=== PATIENT | male | born 1990 | race Caucasian/White ===

== ENCOUNTER 2023-06-18 13:39 | Observation (INO) | payer BC, OTHER, SELFPAY ==
[2023-06-18 13:47] VITALS: BP 133/68; PULSE 73; RESP 16; TEMP 37; O2SAT 98; BMI 24.1
--- NOTE | 2023-06-18 13:59 | ED_ITS ---
HPI - Abdominal Pain <Vanessa Oh PA-C - Last Filed: 06/18/23 15:43> General Chief Complaint: Abdominal Pain Stated Complaint: sent from [facility] Appendicitis Time Seen by Provider: 06/18/23 13:45 Source: patient Mode of arrival: Ambulatory History of Present Illness HPI narrative: 32-year-old male with no reported past medical history presents to the ED with 1 day of right lower quadrant pain. Patient endorses nausea, chills, subjective fevers. Patient denies vomiting, chest pain, shortness of breath, diarrhea, constipation, hematochezia, melena, lightheadedness, dizziness, syncope. Patient's last bowel movement was yesterday, which was normal. It was seen in the walk-in clinic earlier today, sent to the ED to rule out appendicitis. Patient endorses a 4/10 pain currently in the ED. Patient was given a dose of Zofran in the walk-in clinic with the nausea. Patient's nausea is well controlled at the moment. No prior abdominal surgeries. Related Data Home Medications Medication Instructions Recorded Confirmed acetaminophen 500 mg capsule 500 mg PO Q24H PRN Pain (Scale 06/18/23 06/18/23 Score 4-6) ibuprofen 400 mg tablet 400 mg PO Q6H PRN Pain (Scale 06/18/23 06/18/23 Score 1-3) Previous Rx's Medication Instructions Recorded hydrocodone 5 mg-acetaminophen 325 1 tab PO Q6H PRN Mild or moderate 06/19/23 mg tablet pain #15 tabs Allergies Allergy/AdvReac Type Severity Reaction Status Date / Time broccoli Allergy Nausea Verified 06/19/23 08:57 bee venom protein (honey bee) AdvReac Severe Anaphylaxis Verified 06/19/23 08:57 Review of Systems <Vanessa Oh PA-C - Last Filed: 06/18/23 15:43> Review of Systems ROS Unobtainable: All systems reviewed & are unremarkable except as noted in HPI and below Constitutional Constitutional: Reports chills, Denies fatigue, Reports fever(s), Denies frequent falls, Denies lethargy and Denies weakness Eyes Eyes: Denies change in vision, Denies eye discharge, Denies irritation and Denies loss of vision ENT Ears, Nose, Mouth, and Throat: Denies change in voice, Denies dizziness, Denies neck pain, Denies sore throat and Denies throat swelling Cardiovascular Cardiovascular: Denies chest pain, Denies irregular heart rhythm, Denies lightheadedness, Denies palpitations, Denies dyspnea, Denies dyspnea on exertion and Denies orthopnea Respiratory Respiratory: Denies cough, Denies dyspnea, Denies dyspnea on exertion and Denies wheezing Gastrointestinal Gastrointestinal: Reports abdominal pain, Denies change in bowel habits, Denies diarrhea, Reports nausea and Denies vomiting Genitourinary Genitourinary: Denies hematuria, Denies flank pain, Denies urinary incontinence and Denies urinary urgency Musculoskeletal Musculoskeletal: Denies back pain, Denies muscle weakness, Denies neck pain, Denies numbness and Denies tingling Integumentary/Breasts Skin/Breast: Denies pruritus, Denies erythema, Denies rash and Denies wounds Neurologic Neurologic: Denies behavioral changes, Denies confusion, Denies dizziness, Denies frequent falls, Denies loss of vision, Denies numbness, Denies tingling and Denies weakness Psychiatric Psychiatric: Denies anxiety, Denies behavioral changes, Denies confusion, Denies depression, Denies homicidal ideation and Denies suicidal ideation Endocrine Endocrine: Denies fatigue, Denies flushing and Denies palpitations Hematologic/Lymphatic Hematologic/Lymphatic: Denies easy bruising Allergic/Immunologic Allergic/Immunologic: Denies urticaria, Denies throat swelling and Denies wheezing Patient History <Vanessa Oh PA-C - Last Filed: 06/18/23 15:43> Social History household members: none Smoking Status: Former smoker alcohol intake: current Smoking Status: Former smoker alcohol intake frequency: 0-2 drinks per day Substance Use Type: does not use Exam <Vanessa Oh PA-C - Last Filed: 06/18/23 15:43> Narrative Exam Narrative: Const General:?cooperative, healthy appearing and comfortable [facility] Head:?normal to inspection Ears:?hearing grossly normal bilaterally Nose:?external nose normal Face and sinus:?normal facial exam and sinuses nontender Mouth:?oral mucosae normal Throat:?posterior oropharynx normal Eyes General:?appearance normal, both eyes and all related structures Neck Neck:?normal visual inspection and no lymphadenopathy noted Resp Effort & Inspection:?normal respiratory effort Auscultation:?clear to auscultation bilaterally Cardio Rate:?regular rate Rhythm:?regular rhythm GI Abdomen is soft, nondistended. Abdomen is exquisitely tender to palpation in the right lower quadrant. Neuro General:?patient alert, patient awake and patient oriented x3 Initial Vital Signs Initial Vital Signs: Vital Signs Temperature 98.6 F 06/18/23 13:47 Pulse Rate 73 06/18/23 13:47 Respiratory Rate 16 06/18/23 13:47 Blood Pressure 133/68 06/18/23 13:47 Pulse Oximetry 98 06/18/23 13:47 Oxygen Delivery Method Room Air 06/18/23 13:47 <Lizzy Phipps DO - Last Filed: 06/21/23 07:52> Initial Vital Signs Initial Vital Signs: Vital Signs Temperature 98.6 F 06/18/23 13:47 Pulse Rate 73 06/18/23 13:47 Respiratory Rate 16 06/18/23 13:47 Blood Pressure 133/68 06/18/23 13:47 Pulse Oximetry 98 06/18/23 13:47 Oxygen Delivery Method Room Air 06/18/23 13:47 Course <Vanessa Oh PA-C - Last Filed: 06/18/23 15:43> Orders Ordered: Discontinued Medications Acetaminophen (Acetaminophen 325 Mg Tablet) 650 mg PO Q6H [facility] Last Admin: 06/19/23 08:07 Dose: Not Given Documented By: Admin: 06/19/23 05:01 Dose: 650 mg Documented By: Admin: 06/19/23 04:00 Dose: Not Given Documented By: Admin: 06/18/23 21:13 Dose: Not Given Documented By: Admin: 06/18/23 17:52 Dose: 650 mg Documented By: LDV Hydrocodone Bitart/Acetaminophen (Hydrocodone/Acet 5/325 Tablet) 1 tab PO PACUNOW PRN PRN Reason: Mild or moderate pain Benzocaine (Benzocaine/Menthol 1 Hien Pkt) 1 each PO PRN PRN PRN Reason: Sore Throat Last Admin: 06/19/23 11:01 Dose: 1 each Documented By: AK Bupivacaine HCl 20 ml/ (Epinephrine HCl 0.1 mg) 0 ml INJ NOW ONE Stop: 06/19/23 10:16 Last Admin: 06/19/23 10:16 Dose: 6 ml Documented By: PF Fentanyl (Fentanyl 100 Mcg/2 Ml Inj) 0 mcg IV Q5M PRN PRN Reason: Pain, Moderate (4-6) Gabapentin (Gabapentin 300 Mg Capsule) 300 mg PO TID [facility] Last Admin: 06/19/23 08:08 Dose: Not Given Documented By: Admin: 06/18/23 21:12 Dose: Not Given Documented By: Admin: 06/18/23 17:53 Dose: 300 mg Documented By: LDV Hydromorphone HCl (Hydromorphone 0.5 Mg Inj) 0.5 mg IV Q2H PRN PRN Reason: Pain, Severe (7-10) Last Admin: 06/19/23 06:17 Dose: 0.5 mg Documented By: AM Hydromorphone HCl (Hydromorphone 2 Mg Inj) 0 mg IV Q5M PRN PRN Reason: Pain, Moderate (4-6) Hydroxyzine Pamoate (Hydroxyzine Pamoate 25 Mg Capsule) 50 mg PO NOW PRN PRN Reason: Moderate Pain Piperacillin Sod/Tazobactam (Sod 4.5 gm/ Sodium Chloride) 100 mls @ 200 mls/hr IV NOW ONE Stop: 06/18/23 14:54 Last Admin: 06/18/23 16:35 Dose: 200 mls/hr Documented By: LDV Sodium Chloride (Normal Saline 0.9%) 1,000 mls @ 125 mls/hr IV CONT [facility] Last Admin: 06/18/23 16:49 Dose: Not Given Documented By: LDV Dextrose/Sodium Chloride (Dextrose 5%-0.9% Ns) 1,000 mls @ 100 mls/hr IV CONT [facility] Last Admin: 06/19/23 04:51 Dose: 100 mls/hr Documented By: Infusion: 06/19/23 02:40 Dose: 100 mls/hr Documented By: Admin: 06/18/23 16:40 Dose: 100 mls/hr Documented By: LDV Piperacillin Sod/Tazobactam (Sod 3.375 gm/ Sodium Chloride) 100 mls @ 25 mls/hr IV Q8H [facility] Last Admin: 06/18/23 18:15 Dose: Not Given Documented By: LDV Piperacillin Sod/Tazobactam (Sod 3.375 gm/ Sodium Chloride) 100 mls @ 25 mls/hr IV Q8H [facility] Last Admin: 06/19/23 04:50 Dose: 25 mls/hr Documented By: Infusion: 06/19/23 01:00 Dose: 0 mls/hr Documented By: Admin: 06/18/23 20:54 Dose: 25 mls/hr Documented By: REGIS Lactated Ringer's (Lactated Ringers) 1,000 mls @ 42 mls/hr IV NOW ONE Stop: 06/20/23 08:49 Last Infusion: 06/19/23 11:41 Dose: 0 mls/hr Documented By: Admin: 06/19/23 09:01 Dose: 42 mls/hr Documented By: VALENTINO Ibuprofen (Ibuprofen 600 Mg Tablet) 600 mg PO Q6H [facility] Last Admin: 06/19/23 08:08 Dose: Not Given Documented By: Admin: 06/19/23 05:00 Dose: 600 mg Documented By: Admin: 06/19/23 04:00 Dose: Not Given Documented By: Admin: 06/18/23 21:13 Dose: Not Given Documented By: Admin: 06/18/23 17:52 Dose: 600 mg Documented By: LDMaximus Ketorolac Tromethamine (Ketorolac 30 Mg/Ml Vial) 15 mg IV NOW ONE Stop: 06/18/23 14:56 Last Admin: 06/18/23 16:29 Dose: 15 mg Documented By: WEI Lorazepam (Lorazepam 2 Mg/Ml Inj) 0.5 mg IV NOW PRN PRN Reason: Anxiety Last Admin: 06/19/23 11:14 Dose: 0.25 mg Documented By: JULIA Meperidine HCl (Meperidine 50 Mg/Ml Inj) 12.5 mg IV PACUNOW PRN PRN Reason: Mild pain or shivering Metoclopramide HCl (Metoclopramide 10 Mg/2 Ml Inj) 10 mg IV NOW PRN PRN Reason: Nausea And Vomiting Naloxone HCl (Naloxone 0.4 Mg/Ml Vial) 0.2 mg IV Q2MIN PRN PRN Reason: Opiate Reversal Ondansetron HCl (Ondansetron 4 Mg/2 Ml Inj) 4 mg IV Q8HR PRN PRN Reason: Nausea And Vomiting Last Admin: 06/19/23 06:17 Dose: 4 mg Documented By: AM Ondansetron HCl (Ondansetron 4 Mg/2 Ml Inj) 4 mg IV NOW ONE Stop: 06/18/23 15:42 Last Admin: 06/18/23 16:29 Dose: 4 mg Documented By: WEI Ondansetron HCl (Ondansetron 4 Mg/2 Ml Inj) 4 mg IV NOW PRN PRN Reason: Nausea And Vomiting Oxycodone HCl (Oxycodone Ir 5 Mg Tablet) 5 mg PO Q3H PRN PRN Reason: Pain, Moderate (4-6) Last Admin: 06/19/23 05:01 Dose: 5 mg Documented By: Admin: 06/19/23 01:02 Dose: 5 mg Documented By: AM Oxycodone HCl (Oxycodone Ir 5 Mg Tablet) 5 mg PO PACUNOW PRN PRN Reason: Mild or moderate pain Last Admin: 06/19/23 11:09 Dose: 5 mg Documented By: JULIA Oxycodone/Acetaminophen (Oxycodone/Acetaminophen 5/325 Tablet) 1 tab PO PACUNOW PRN PRN Reason: Mild or Moderate Pain Scopolamine (Scopolamine 1 Patch) 1 patch TOP NOW ONE Stop: 06/18/23 15:33 Last Admin: 06/18/23 20:52 Dose: 1 patch Documented By: REGIS Vital Signs Vital signs: Vital Signs - 8 hr 06/18/23 13:47 Temperature 98.6 F Pulse Rate 73 Respiratory Rate 16 Blood Pressure 133/68 Pulse Oximetry 98 Oxygen Delivery Method Room Air <Lizzy Phipps DO - Last Filed: 06/21/23 07:52> Orders Ordered: Discontinued Medications Acetaminophen (Acetaminophen 325 Mg Tablet) 650 mg PO Q6H [facility] Last Admin: 06/19/23 08:07 Dose: Not Given Documented By: Admin: 06/19/23 05:01 Dose: 650 mg Documented By: Admin: 06/19/23 04:00 Dose: Not Given Documented By: Admin: 06/18/23 21:13 Dose: Not Given Documented By: Admin: 06/18/23 17:52 Dose: 650 mg Documented By: LDV Hydrocodone Bitart/Acetaminophen (Hydrocodone/Acet 5/325 Tablet) 1 tab PO PACUNOW PRN PRN Reason: Mild or moderate pain Benzocaine (Benzocaine/Menthol 1 Hien Pkt) 1 each PO PRN PRN PRN Reason: Sore Throat Last Admin: 06/19/23 11:01 Dose: 1 each Documented By: AK Bupivacaine HCl 20 ml/ (Epinephrine HCl 0.1 mg) 0 ml INJ NOW ONE Stop: 06/19/23 10:16 Last Admin: 06/19/23 10:16 Dose: 6 ml Documented By: PF Fentanyl (Fentanyl 100 Mcg/2 Ml Inj) 0 mcg IV Q5M PRN PRN Reason: Pain, Moderate (4-6) Gabapentin (Gabapentin 300 Mg Capsule) 300 mg PO TID [facility] Last Admin: 06/19/23 08:08 Dose: Not Given Documented By: Admin: 06/18/23 21:12 Dose: Not Given Documented By: Admin: 06/18/23 17:53 Dose: 300 mg Documented By: LDV Hydromorphone HCl (Hydromorphone 0.5 Mg Inj) 0.5 mg IV Q2H PRN PRN Reason: Pain, Severe (7-10) Last Admin: 06/19/23 06:17 Dose: 0.5 mg Documented By: AM Hydromorphone HCl (Hydromorphone 2 Mg Inj) 0 mg IV Q5M PRN PRN Reason: Pain, Moderate (4-6) Hydroxyzine Pamoate (Hydroxyzine Pamoate 25 Mg Capsule) 50 mg PO NOW PRN PRN Reason: Moderate Pain Piperacillin Sod/Tazobactam (Sod 4.5 gm/ Sodium Chloride) 100 mls @ 200 mls/hr IV NOW ONE Stop: 06/18/23 14:54 Last Admin: 06/18/23 16:35 Dose: 200 mls/hr Documented By: LDV Sodium Chloride (Normal Saline 0.9%) 1,000 mls @ 125 mls/hr IV CONT [facility] Last Admin: 06/18/23 16:49 Dose: Not Given Documented By: LDV Dextrose/Sodium Chloride (Dextrose 5%-0.9% Ns) 1,000 mls @ 100 mls/hr IV CONT [facility] Last Admin: 06/19/23 04:51 Dose: 100 mls/hr Documented By: Infusion: 06/19/23 02:40 Dose: 100 mls/hr Documented By: Admin: 06/18/23 16:40 Dose: 100 mls/hr Documented By: LDV Piperacillin Sod/Tazobactam (Sod 3.375 gm/ Sodium Chloride) 100 mls @ 25 mls/hr IV Q8H [facility] Last Admin: 06/18/23 18:15 Dose: Not Given Documented By: LDV Piperacillin Sod/Tazobactam (Sod 3.375 gm/ Sodium Chloride) 100 mls @ 25 mls/hr IV Q8H [facility] Last Admin: 06/19/23 04:50 Dose: 25 mls/hr Documented By: Infusion: 06/19/23 01:00 Dose: 0 mls/hr Documented By: Admin: 06/18/23 20:54 Dose: 25 mls/hr Documented By: REGIS Lactated Ringer's (Lactated Ringers) 1,000 mls @ 42 mls/hr IV NOW ONE Stop: 06/20/23 08:49 Last Infusion: 06/19/23 11:41 Dose: 0 mls/hr Documented By: Admin: 06/19/23 09:01 Dose: 42 mls/hr Documented By: VALENTINO Ibuprofen (Ibuprofen 600 Mg Tablet) 600 mg PO Q6H [facility] Last Admin: 06/19/23 08:08 Dose: Not Given Documented By: Admin: 06/19/23 05:00 Dose: 600 mg Documented By: Admin: 06/19/23 04:00 Dose: Not Given Documented By: Admin: 06/18/23 21:13 Dose: Not Given Documented By: Admin: 06/18/23 17:52 Dose: 600 mg Documented By: ELLY Ketorolac Tromethamine (Ketorolac 30 Mg/Ml Vial) 15 mg IV NOW ONE Stop: 06/18/23 14:56 Last Admin: 06/18/23 16:29 Dose: 15 mg Documented By: WEI Lorazepam (Lorazepam 2 Mg/Ml Inj) 0.5 mg IV NOW PRN PRN Reason: Anxiety Last Admin: 06/19/23 11:14 Dose: 0.25 mg Documented By: JULIA Meperidine HCl (Meperidine 50 Mg/Ml Inj) 12.5 mg IV PACUNOW PRN PRN Reason: Mild pain or shivering Metoclopramide HCl (Metoclopramide 10 Mg/2 Ml Inj) 10 mg IV NOW PRN PRN Reason: Nausea And Vomiting Naloxone HCl (Naloxone 0.4 Mg/Ml Vial) 0.2 mg IV Q2MIN PRN PRN Reason: Opiate Reversal Ondansetron HCl (Ondansetron 4 Mg/2 Ml Inj) 4 mg IV Q8HR PRN PRN Reason: Nausea And Vomiting Last Admin: 06/19/23 06:17 Dose: 4 mg Documented By: AM Ondansetron HCl (Ondansetron 4 Mg/2 Ml Inj) 4 mg IV NOW ONE Stop: 06/18/23 15:42 Last Admin: 06/18/23 16:29 Dose: 4 mg Documented By: WEI Ondansetron HCl (Ondansetron 4 Mg/2 Ml Inj) 4 mg IV NOW PRN PRN Reason: Nausea And Vomiting Oxycodone HCl (Oxycodone Ir 5 Mg Tablet) 5 mg PO Q3H PRN PRN Reason: Pain, Moderate (4-6) Last Admin: 06/19/23 05:01 Dose: 5 mg Documented By: Admin: 06/19/23 01:02 Dose: 5 mg Documented By: AM Oxycodone HCl (Oxycodone Ir 5 Mg Tablet) 5 mg PO PACUNOW PRN PRN Reason: Mild or moderate pain Last Admin: 06/19/23 11:09 Dose: 5 mg Documented By: JULIA Oxycodone/Acetaminophen (Oxycodone/Acetaminophen 5/325 Tablet) 1 tab PO PACUNOW PRN PRN Reason: Mild or Moderate Pain Scopolamine (Scopolamine 1 Patch) 1 patch TOP NOW ONE Stop: 06/18/23 15:33 Last Admin: 06/18/23 20:52 Dose: 1 patch Documented By: REGIS Vital Signs Vital signs: Vital Signs - 8 hr 06/18/23 13:47 Temperature 98.6 F Pulse Rate 73 Respiratory Rate 16 Blood Pressure 133/68 Pulse Oximetry 98 Oxygen Delivery Method Room Air MDM - Abdominal Pain <Vanessa Oh PA-C - Last Filed: 06/18/23 15:43> Lab Data 06/19/23 05:00 06/18/23 14:17 Labs: Lab Results 06/18/23 06/18/23 06/18/23 Range/Units 14:17 14:17 14:17 WBC 16.8 H (4.5-11.0) X10^3/uL RBC 4.65 (4.5-5.9) X10^6/uL Hgb 14.4 (13.5-17.5) g/dL Hct 41.5 (41-53) % MCV 89.2 (80-100) fL MCH 31.0 (26-34) PG MCHC 34.8 (30-36) % RDW 13.0 (11.6-14.8) % Plt Count 220 (150-400) X10^3/uL Neut % (Auto) 83.4 H (50-75) % Lymph % (Auto) 7.2 L (25-40) % Ward % (Auto) 8.8 (3-14) % Eos % (Auto) 0.4 L (2-4) % Baso % (Auto) 0.2 (0-2) % Neut # (Auto) 89200 H (8780-7051) /uL Lymph # (Auto) 1200 (7951-9470) /uL Ward # (Auto) 1500 H (0-900) /uL Eos # (Auto) 100 (0-450) /uL Baso # (Auto) 0 (0-100) /uL PT 13.3 H (10.1-12.7) SECONDS INR 1.2 (0.9-1.3) APTT 31 (26-36) SECONDS Sodium 134 L (137-145) mmol/L Potassium 3.9 (3.4-5.1) mmol/L Chloride 99 (98-107) mmol/L Carbon Dioxide 27 (22-32) mmol/L BUN 11 (9-20) mg/dL Creatinine 0.91 (0.66-1.25) mg/dL Estimated GFR > 60 (>60) mL/min BUN/Creatinine Ratio 12.1 (6-22) Glucose 109 H (70-100) mg/dL Calcium 9.1 (8.4-10.2) mg/dL Total Bilirubin 0.7 (0.2-1.3) mg/dL AST 25 (17-59) IU/L ALT 25 (<50) IU/L Alkaline Phosphatase 74 (38-126) U/L Total Protein 7.6 (6.3-8.2) g/dL Albumin 4.6 (3.5-5.0) g/dL Globulin 3.0 (1.7-4.1) g/dL Albumin/Globulin Ratio 1.5 (1.0-2.8) Lipase 41 (23-300) U/L MDM Narrative Medical decision making narrative: 32-year-old male with no reported past medical history presents to the ED with 1 day of right lower quadrant pain. Concern for appendicitis versus nephrolithiasis versus UTI versus pyelonephritis versus other intra-abdominal pathology versus other. Will obtain labs, lipase, UA, CT abdomen pelvis. Will give ketorolac for pain. Will reassess. White count elevated at 16.8. All other labs within normal limits. CT abdomen pelvis shows acute appendicitis without abscess or perforation. The appendix is abnormally dilated to 13 mm diameter, there is wall thickening and periappendiceal inflammatory stranding. Dr. Powers from surgery was consulted she recommends starting antibiotics, admitting to surgery. Patient will be observed overnight for improvement with antibiotics, evaluated for surgery tomorrow. Findings and disposition discussed with patient. Patient verbalized understanding. Antibiotics and maintenance fluids started. Patient she will be strict NPO. Medical records reviewed: Yes <Lizzy Phipps DO - Last Filed: 06/21/23 07:52> Lab Data Labs: Lab Results 06/18/23 06/18/23 06/18/23 Range/Units 14:17 14:17 14:17 WBC 16.8 H (4.5-11.0) X10^3/uL RBC 4.65 (4.5-5.9) X10^6/uL Hgb 14.4 (13.5-17.5) g/dL Hct 41.5 (41-53) % MCV 89.2 (80-100) fL MCH 31.0 (26-34) PG MCHC 34.8 (30-36) % RDW 13.0 (11.6-14.8) % Plt Count 220 (150-400) X10^3/uL Neut % (Auto) 83.4 H (50-75) % Lymph % (Auto) 7.2 L (25-40) % Ward % (Auto) 8.8 (3-14) % Eos % (Auto) 0.4 L (2-4) % Baso % (Auto) 0.2 (0-2) % Neut # (Auto) 91495 H (3418-6964) /uL Lymph # (Auto) 1200 (3372-8809) /uL Ward # (Auto) 1500 H (0-900) /uL Eos # (Auto) 100 (0-450) /uL Baso # (Auto) 0 (0-100) /uL PT 13.3 H (10.1-12.7) SECONDS INR 1.2 (0.9-1.3) APTT 31 (26-36) SECONDS Sodium 134 L (137-145) mmol/L Potassium 3.9 (3.4-5.1) mmol/L Chloride 99 (98-107) mmol/L Carbon Dioxide 27 (22-32) mmol/L BUN 11 (9-20) mg/dL Creatinine 0.91 (0.66-1.25) mg/dL Estimated GFR > 60 (>60) mL/min BUN/Creatinine Ratio 12.1 (6-22) Glucose 109 H (70-100) mg/dL Calcium 9.1 (8.4-10.2) mg/dL Total Bilirubin 0.7 (0.2-1.3) mg/dL AST 25 (17-59) IU/L ALT 25 (<50) IU/L Alkaline Phosphatase 74 (38-126) U/L Total Protein 7.6 (6.3-8.2) g/dL Albumin 4.6 (3.5-5.0) g/dL Globulin 3.0 (1.7-4.1) g/dL Albumin/Globulin Ratio 1.5 (1.0-2.8) Lipase 41 (23-300) U/L Discharge Plan Departure Patient Disposition: Admitted to Surgery Clinical Impression: Acute appendicitis Admit Date/Time: 06/18/23 14:57 Admit Provider: La Powers <Lizzy Phipps DO - Last Filed: 06/21/23 07:52> Cosign ED Attending Naelature Attestation: I was immediately available in the department for consultation. Documentation has been reviewed.
--- NOTE | 2023-06-18 14:04 | DI.CT.S_ITS ---
PROCEDURE: CT ABDOMEN PELVIS W CON INDICATIONS: RLQ pain TECHNIQUE: After the administration of intravenous contrast, axial sections acquired from the lung bases to the pubic symphysis. Coronal and sagittal reformats were performed. For radiation dose reduction, the following was used: automated exposure control, adjustment of mA and/or kV according to patient size. COMPARISON: None. FINDINGS: Image quality: Excellent. Lung bases: Unremarkable. Heart: No significant findings. ABDOMEN: Liver: Unremarkable. Gallbladder: Unremarkable. Biliary ducts: Unremarkable. Pancreas: Unremarkable. Spleen: Unremarkable. Adrenal Glands: Unremarkable. Kidneys and Ureters: Unremarkable. Stomach and Bowel: Stomach, small bowel loops, and colon are unremarkable. The appendix is abnormally dilated measuring up to 13 mm in diameter. There is wall thickening and moderate periappendiceal inflammatory stranding. No evidence for perforation or abscess formation. Peritoneum: No abnormal intraperitoneal fluid. No free air. Ventral Wall: No hernias. Abdominal Nodes: No retroperitoneal or mesenteric adenopathy by size criteria. Vessels: Aorta and inferior vena cava are normal in size. PELVIS: Pelvic Organs: Unremarkable. Bladder: Unremarkable. Pelvic Nodes: No enlarged lymph nodes. Miscellaneous: No hernias are seen. Bones: Unremarkable. IMPRESSION: 1. Acute appendicitis. No evidence for perforation or abscess formation. Dictated by: Paul James M.D. on 06/18/2023 at 13:31 Approved by: Paul James M.D. on 06/18/2023 at 13:34
[2023-06-18 14:26] LABS: Add Manual Diff / Slide Review NO; Basophils Absolute Auto 0 /uL (0-100); Basophils Percent Auto 0.2 % (0-2); Eosinophils Absolute Auto 100 /uL (0-450); Eosinophils Percent Auto 0.4 % (2-4); Hematocrit 41.5 % (41-53); Hemoglobin 14.4 g/dL (13.5-17.5); Lymphocytes Absolute Auto 1200 /uL (1100-4500); Lymphocytes Percent Auto 7.2 % (25-40); Mean Corpuscular HGB Conc 34.8 % (30-36); Mean Corpuscular Volume 89.2 fL (80-100); Monocytes Absolute Auto 1500 /uL (0-900); Monocytes Percent Auto 8.8 % (3-14); Neutrophils Absolute Auto 14000 /uL (1500-7000); Neutrophils Percent Auto 83.4 % (50-75); Platelet Count 220 X10^3/uL (150-400); Red Blood Cell Count 4.65 X10^6/uL (4.5-5.9); White Blood Cell Count 16.8 X10^3/uL (4.5-11.0)
[2023-06-18 14:41] LABS: INR 1.2 (0.9-1.3); Prothrombin Time 13.3 SECONDS (10.1-12.7)
[2023-06-18 14:43] LABS: PTT Partial Thromboplastin Tim 31 SECONDS (26-36)
[2023-06-18 14:45] LABS: Alanine Aminotransferase 25 IU/L (<50); Albumin 4.6 g/dL (3.5-5.0); Albumin Globulin Ratio 1.5 (1.0-2.8); Alkaline Phosphatase 74 U/L (38-126); Aspartate Aminotransferase 25 IU/L (17-59); BUN Creatinine Ratio 12.1 (6-22); Bilirubin Total 0.7 mg/dL (0.2-1.3); Blood Urea Nitrogen 11 mg/dL (9-20); Calcium 9.1 mg/dL (8.4-10.2); Carbon Dioxide 27 mmol/L (22-32); Chloride 99 mmol/L (98-107); Estimated Glomerular Filt Rate > 60 mL/min (>60); Glucose 109 mg/dL (70-100); HEMOLYSIS < 15 (0-50); Lipase 41 U/L (23-300); Potassium 3.9 mmol/L (3.4-5.1); Sodium 134 mmol/L (137-145); Total Protein 7.6 g/dL (6.3-8.2)
[2023-06-18] MEDS: KETOROLAC 30 MG/ML VIAL 15 MG IV (16:29)
[2023-06-18] MEDS: ONDANSETRON 4 MG/2 ML INJ IV (16:29)
[2023-06-18] MEDS: PIPERACILLIN/TAZO 4.5 GM in SODIUM CHLORIDE 0.9% 100 ML IV (16:35)
[2023-06-18] MEDS: DEXTROSE 5%-0.9% NS 1,000 ML 100 ML IV (16:40)
[2023-06-18 16:43] VITALS: BP 121/68; PULSE 73; RESP 15; TEMP 36.6; O2SAT 100
[2023-06-18] MEDS: ACETAMINOPHEN 325 MG TABLET 650 MG PO (17:52)
[2023-06-18] MEDS: IBUPROFEN 600 MG TABLET PO (17:52)
[2023-06-18] MEDS: GABAPENTIN 300 MG CAPSULE PO (17:53)
[2023-06-18 17:57] VITALS: BMI 25.5
[2023-06-18 20:00] VITALS: BP 120/72; PULSE 68; RESP 17; TEMP 35.8; O2SAT 99
[2023-06-18] MEDS: SCOPOLAMINE 1 PATCH TOP (20:52)
[2023-06-18] MEDS: PIPERACILLIN/TAZO 3.375 GM in SODIUM CHLORIDE 0.9% 100 ML IV (20:54)
[2023-06-19] VITALS (11 sets, daily range): BP systolic 92–125; BP diastolic 59–83; PULSE 52–86; RESP 9–19; TEMP 35.8–36.4; O2SAT 92–99; BMI 25.5
--- NOTE | 2023-06-19 | PATH_ITS ---
[facility] Accession Number: [id number] No. of containers..01 Tissue . 01 Material submitted: . appendix - APPENDIX . 01 Diagnosis: Vermiform Appendix, Appendectomy: Acute transmural periappendicitis and periappendicitis. Negative for neoplasia. MRV 06/25/2023 1405 Local . 01 Electronically signed: . La Hoyt MD, Pathologist NPI- [id number] . 01 Gross description: . The specimen is received in formalin labeled with the patient's name, , and appendix, and consists of a chino vermiform appendix measuring 4.3 cm in length by 0.9 cm in diameter with chino serosa and adherent material consistent with exudate. The margin is inked blue, and sectioning reveals a patent lumen averaging 0.2 cm in diameter with no fecaliths identified. The bhatt are gary to chino, average 0.3 cm thick with no perforations or lesions identified. [employer] sections to include the margin, one-half of the bisected distal tip, and cross-section are submitted in cassette A1. ([id number]) /[facility] 06/20/2023 1012 Local . 01 Pathologist provided ICD-10: K35.80 . 01 CPT . 918376 Specimen Comment: A courtesy copy of this report has been sent to [phone] Performed at: 01 [facility] [address] [place] [address], [place], [place] [id number] MD Bill Heller MD Phone: [phone]
[2023-06-19] MEDS: OXYCODONE IR 5 MG TABLET PO ×3 (01:02→11:09)
[2023-06-19] MEDS: PIPERACILLIN/TAZO 3.375 GM in SODIUM CHLORIDE 0.9% 100 ML IV (04:50)
[2023-06-19] MEDS: DEXTROSE 5%-0.9% NS 1,000 ML 100 ML IV (04:51)
[2023-06-19] MEDS: IBUPROFEN 600 MG TABLET PO (05:00)
[2023-06-19] MEDS: ACETAMINOPHEN 325 MG TABLET 650 MG PO (05:01)
[2023-06-19 05:22] LABS: Add Manual Diff / Slide Review NO; Basophils Absolute Auto 0 /uL (0-100); Basophils Percent Auto 0.2 % (0-2); Eosinophils Absolute Auto 300 /uL (0-450); Eosinophils Percent Auto 2.7 % (2-4); Hematocrit 39.6 % (41-53); Hemoglobin 13.4 g/dL (13.5-17.5); Lymphocytes Absolute Auto 1600 /uL (1100-4500); Lymphocytes Percent Auto 16.8 % (25-40); Mean Corpuscular HGB Conc 33.9 % (30-36); Mean Corpuscular Hemoglobin 30.4 PG (26-34); Mean Corpuscular Volume 89.8 fL (80-100); Monocytes Absolute Auto 1100 /uL (0-900); Monocytes Percent Auto 11.2 % (3-14); Neutrophils Absolute Auto 6700 /uL (1500-7000); Neutrophils Percent Auto 69.1 % (50-75); Platelet Count 210 X10^3/uL (150-400); Red Blood Cell Count 4.41 X10^6/uL (4.5-5.9); Red Cell Distribution Width 13.2 % (11.6-14.8); White Blood Cell Count 9.7 X10^3/uL (4.5-11.0)
[2023-06-19] MEDS: ONDANSETRON 4 MG/2 ML INJ IV (06:17)
[2023-06-19] MEDS: HYDROMORPHONE 0.5 MG INJ IV (06:17)
--- NOTE | 2023-06-19 07:16 | P.HP_ITS ---
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 Was seen for focal RLQ pain, anorexia and CT findings of acute uncomplicated appendicitis [facility] Social History Smoking Status: Former smoker Meds Home Medications and Allergies Home Medications Medication Instructions Recorded Confirmed Type acetaminophen 500 mg capsule 500 mg PO Q24H PRN Pain (Scale 06/18/23 06/18/23 History Score 4-6) amoxicillin 500 mg capsule 500 mg PO Q8H 06/18/23 06/18/23 History ibuprofen 400 mg tablet 400 mg PO Q6H PRN Pain (Scale 06/18/23 06/18/23 History Score 1-3) Allergies Allergy/AdvReac Type Severity Reaction Status Date / Time broccoli Allergy Nausea Verified 06/18/23 18:07 bee venom protein (honey bee) AdvReac Severe Anaphylaxis Verified 06/18/23 18:07 Review of Systems Review of Systems ROS: Yes All systems reviewed with the patient and are negative except as otherwise documented Exam Vital Signs (past 8 hours): - 06/19/23 00:00 06/19/23 04:00 Temperature 97.0 F L 96.5 F L Pulse Rate 74 54 L Respiratory Rate 16 18 Blood Pressure 114/70 125/69 Pulse Oximetry 98 98 Oxygen Flow Rate 0 0 Oxygen Delivery Method Room Air Oxygen Flow Rate 0 Const General: cooperative and comfortable Nutritional Appearance: thin HENMT Head: normocephalic and atraumatic Eyes Sclera: sclerae normal Neck Neck: trachea midline Resp Effort & Inspection: normal respiratory effort and able to speak in complete sentences Cardio Rate: regular rate Rhythm: regular rhythm GI Palpation: soft and tender (RLQ tenderness) Skin General: elasticity normal and turgor normal Neuro General: patient alert, patient awake and patient oriented x3 Cognition: normal cognition Speech: speech normal Psych Mental Status: mental status grossly normal Judgment: judgment good Objective Labs 06/19/23 05:00 06/18/23 14:17 Labs: Laboratory Results - last 24 hr 06/18/23 06/18/23 06/18/23 14:17 14:17 14:17 WBC 16.8 H RBC 4.65 Hgb 14.4 Hct 41.5 MCV 89.2 MCH 31.0 MCHC 34.8 RDW 13.0 Plt Count 220 Neut % (Auto) 83.4 H Lymph % (Auto) 7.2 L [place] % (Auto) 8.8 Eos % (Auto) 0.4 L Baso % (Auto) 0.2 Neut # (Auto) 52776 H Lymph # (Auto) 1200 [place] # (Auto) 1500 H Eos # (Auto) 100 Baso # (Auto) 0 PT 13.3 H INR 1.2 APTT 31 Sodium 134 L Potassium 3.9 Chloride 99 Carbon Dioxide 27 BUN 11 Creatinine 0.91 Estimated GFR > 60 BUN/Creatinine Ratio 12.1 Glucose 109 H Calcium 9.1 Total Bilirubin 0.7 AST 25 ALT 25 Alkaline Phosphatase 74 Total Protein 7.6 Albumin 4.6 Globulin 3.0 Albumin/Globulin Ratio 1.5 Lipase 41 06/19/23 05:00 WBC 9.7 RBC 4.41 L Hgb 13.4 L Hct 39.6 L MCV 89.8 MCH 30.4 MCHC 33.9 RDW 13.2 Plt Count 210 Neut % (Auto) 69.1 Lymph % (Auto) 16.8 L [place] % (Auto) 11.2 Eos % (Auto) 2.7 Baso % (Auto) 0.2 Neut # (Auto) 6700 Lymph # (Auto) 1600 [place] # (Auto) 1100 H Eos # (Auto) 300 Baso # (Auto) 0 PT INR APTT Sodium Potassium Chloride Carbon Dioxide BUN Creatinine Estimated GFR BUN/Creatinine Ratio Glucose Calcium Total Bilirubin AST ALT Alkaline Phosphatase Total Protein Albumin Globulin Albumin/Globulin Ratio Lipase Assessment & Plan Assessment & Plan narrative: Acute appendicitis. Offered antibiotics only vs surgery and prefers surgery Plan: lap appy Time Spent With Patient Time with patient: less than 30 minutes
[2023-06-19] MEDS: LACTATED RINGERS 1,000 ML 42 ML IV (09:01)
--- NOTE | 2023-06-19 10:07 | SUR.OPER ---
Supine on padded OR bed, head on pillow, right arm secured on padded arm board at <90 degrees abduction, left arm wrapped in gel pad and tucked at side, legs uncrossed, safety belt at thigh, tape over blanket over lower legs.
[2023-06-19] MEDS: BUPIVACAINE 0.5% (PF) 20 ML, EPINEPHrine 0.1 MG INJ (10:16)
--- NOTE | 2023-06-19 10:25 | PM.OP.1 ---
Operative Date/Time/Diagnoses Date of procedure: 06/19/23 Time of procedure: 10:25 Pre-op diagnosis: Acute appendicitis Post-op diagnosis: same Procedure & Clinicians Procedure: Laparoscopic appendectomy Same procedure as scheduled: Yes Indications: Acute appendicitis Surgeon: La Powers Click Yes if Unassisted: Yes Anesthesia Type: General and Local Operative Notes Findings: Acute appendicitis stage II suppurative Closure Type: primary Specimen(s): other (Appendix) Estimated Blood Loss (mL): 3 Blood products transfused: none Procedure in detail: Preop diagnosis: Acute appendicitis Postop diagnosis: Same Operative procedure: Laparoscopic appendectomy Surgeon: Glory Powers MD Findings: Stage II suppurative appendicitis Procedure: Patient placed in supine position. Prepped and draped in sterile fashion to expose his abdomen. Infraumbilical port site placed using open technique a 12 mm port. Insufflation began all other ports were placed under direct vision including a 5 mm port in the left lateral abdomen. A 5 mm port in the suprapubic area. Appendix was identified lifted cephalad for exposure. Appendiceal mesentery was taken down with electrocautery. Base of the appendix was healthy in nature. A BHANU stapling device using blue load was used amputate the appendix which was then placed into an Endo-Catch bag without spillage. There was good hemostasis and a healthy staple line as a result. Appendix was removed through the infraumbilical port site. I then suctioned the abdomen to a clear return there was physiologic fluid in the pelvis. I then removed all ports and began closure. Closure consisted of interrupted 0 Vicryl for fascial closure. Skin was closed a running 4-0 Vicryl. Steri-Strips and sterile dressings were placed. Patient was awakened, extubated, taken to recovery room in stable condition. Needle, instrument, sponge counts were correct. Blood loss: 3 mL Specimen: Appendix Complications: none Post-operative Condition: stable Disposition: PACU
[2023-06-19] MEDS: BENZOCAINE/MENTHOL 1 LOZ PKT 1 EACH PO (11:01)
[2023-06-19] MEDS: LORazepam 2 MG/ML INJ 0.5 MG IV (11:14)
--- NOTE | 2023-06-19 11:31 | PC.NURSE ---
Received notification from PACU that patient will be discharged from PACU directly to home with his mom (Zee [phone]). Wallet and patient's clothing packed and given to Zee, she will take his belongings down to waiting room to meet her son.
--- NOTE | 2023-06-19 11:32 | CM.DANOTE ---
DCP Brief Assessment: ELECTROMEDICAL EQUIPMENT REPAIRER reviewed EMR. Per chart, patient will have a lap appy today for appendicitis. ELECTROMEDICAL EQUIPMENT REPAIRER entered room. Patient was already in his procedure. ELECTROMEDICAL EQUIPMENT REPAIRER met with patient's mom Keila ([phone]). Crhissy reports patient is very active and independent with everything. Mom reports being concerned with leaving him home alone tonight. ELECTROMEDICAL EQUIPMENT REPAIRER encouraged mom to consider a family member to stay with him over night if she's worried about it. Plan: patient will d/c home with mom to transport. Likely no needs from CM team. CM team will follow as needed. RIKKI Chin Discharge Planning/Care Management CM Discharge Assessment Start: 06/19/23 11:30 Freq: Status: Active Protocol: Document 06/19/23 11:30 (Rec: 06/19/23 11:32 [id number]) Discharge Planning Assessment Assigned [employer] Tender RIKKI Pitts DPOA/Assigned Designee Name Keila Do (mom) Contact Information [phone] Advance Directives? No History Provided By Family Member,Medical Record Prior Living Arrangements House Household Members none Type of transporation used prior to Drives own vehicle admit Independent with ADL's Yes Is patient alert and oriented? Yes Barriers to Discharge No Discharge Plan Home Transportation Arrangement mom in POV Whiteboard Updated in Patient Room with Yes name and ext. # of [employer] Tender Review Status In Process Next Review Type Continued Stay Review
== END 2023-06-19 12:30 | disposition home or self-care (01) ==
LOC: ED 14:53 → AC 15:39
PROVIDERS: Admitting Provider Surgery; Emergency Provider Student in an Organized Health Care Education/Training Program; Referring Provider Student in an Organized Health Care Education/Training Program; Visit Provider Surgery
PROC: 0DTJ4ZZ Resection of Appendix, Percutaneous Endoscopic Approach (ICD-10-PCS; CPT 44970; principal; 2023-06-19 08:30)
DX: K35.80 Unspecified acute appendicitis (principal); Z87.891 Personal history of nicotine dependence
CPT/HCPCS: 44970; 36415; 74177; 80053; 81003; 83690; 85025; 85610; 85730; 99221; 99284; G0378; J0171; J1100; J1170; J1885; J2060; J2405; J2543; J2704; J3010